=== PATIENT | female | born 1965 | race Two or more races ===

== ENCOUNTER 2025-01-10 09:05 | Outpatient (AMB) | payer MEDICAID, SELFPAY ==
--- NOTE | 2025-01-10 09:27 | ORTHONT_ITS ---
Vital signs 01/10/25 09:30 Height 1.47 m Height Method Stated Weight 91.342 kg Weight Measurement Method Standing Scale BMI 42.3 BP 128/84 Blood Pressure Source Automatic Cuff Blood Pressure Location Left Upper Arm Position Sitting Respiration 18 Pulse 82 Pulse Source Monitor Temp 96.8 F Temp Source Temporal Artery Scan Pulse Oximetry (%) 98 Oxygen Delivery Method Room Air Med/Allergies Allergies & Medications Allergies No Known Allergies Allergy (Verified 01/10/25 09:31) Medication Reconciliation atorvastatin 10 mg tablet 10 mg PO QDAY 09/20/23 [History Confirmed 01/10/25] ergocalciferol (vitamin D2) 1,250 mcg (50,000 unit) capsule 1,250 mcg PO QWEEK 09/20/23 [History Confirmed 01/10/25] ertugliflozin 15 mg tablet (Steglatro) 15 mg PO QDAY 09/20/23 [History Confirmed 01/10/25] levothyroxine 50 mcg capsule 50 mcg PO QDAY 09/20/23 [History Confirmed 01/10/25] lisinopril 10 mg tablet 10 mg PO QDAY 09/20/23 [History Confirmed 01/10/25] meloxicam 7.5 mg tablet 7.5 mg PO BID #45 tabs 09/20/23 [Rx Confirmed 01/10/25] metformin 1,000 mg tablet 1,000 mg PO BID 09/20/23 [History Confirmed 01/10/25] pioglitazone 15 mg tablet 15 mg PO QDAY 09/20/23 [History Confirmed 01/10/25] meloxicam 7.5 mg tablet 7.5 mg PO QDAY #45 tabs 01/10/25 [Rx] Exam Exam Patient is in no acute distress and is cooperative with the examination today. Breathing is nonlabored. In no respiratory distress. Bilateral extremities were evaluated and demonstrates sensation intact to light touch. Palpable pedal pulses are present. No significant edema is present. Bilateral hips were examined. The patient has no pain with log roll of the hips. Internal rotation to 30 degrees and external rotation to 30 degrees is painless. Negative FADIR. Left knee was examined today. The right knee is in reasonable alignment. Range of motion from 0-120 degrees. Knee is stable to varus and valgus as well as AP translation with <5mm. Patient has a negative Mc[place]rays. There is no pain with patellofemoral compression and no crepitus noted. The knee is nontender to palpation. Right knee is tender to palpation medially and laterally. Range of motion is 0 to 110 degrees. Knee feels stable to varus valgus stress as well as AP translation I reviewed an MRI from [facility]. This demonstrates a lateral and medial meniscus tear. It demonstrates degenerative changes xrays demonstrate lateral arthritis of moderate severity on the right and moderate arthritis on the left Assessment and Plan Problem List (1) Pain in right knee: Status: Acute Plan: Patient is a 58-year-old female with degenerative meniscal tears of her right knee as well as right knee osteoarthritis. She has Done well with the last cortisone injections. She would like bilateral knee cortisone injections today and a meloxicam prescription Recommend knee cortisone injections as patient would like to proceed with conservative treatment at this time. The risks and benefits of the procedure were reviewed with the patient and patient gave verbal consent to continue with the procedure. Procedure: performed by Dr. Love Using sterile technique the Bilateral knees were thoroughly prepped with alcohol, and approximately 1 cc of Kenalog 40 mg/mL and 4 cc of 1% lidocaine was injected into each knee without resistance into the medial tibial femoral joint space. The patient tolerated the procedure. (2) Arthritis of knee, right: Status: Acute (3) Arthritis of both knees: Status: Acute Office Procedures GNS Level of Care Nursing/Assessment Patient Status: Established Patient Nursing Assessment/Reassesment: Medication Reconciliation, Update PMH in EMR and Vital Signs Coordination of Care: Complex Care and Chronic Disease 1-5, Education Complex Pt/Fam, Consent,records obtained, informed consent, Results/Orders obtained and Staff clarify orders Special Needs: Language special needs Established Patient Charge Established Patient Point Assignment: 95 Established Patient Point Charge: EP Level 3 (80-115) Surgical Proc/IM SQ injection Major Surgical Procedure: Yes (BILATERAL KNEE INJECTION) Medication Given Medication Given Medication Given: Yes Documented Dose Given: 4 Route: Infiitration Medication Given Medication Given Medication Given: Yes Documented Dose Given: 4 Route: Infiitration Medication Given Medication Given Medication Given: Yes Documented Dose Given: 2 Route: Infiitration Medication Given Medication Given Medication Given: Yes Documented Dose Given: 2 Route: Infiitration Office Meds Xylocaine 10 mg/mL (1 %) injection solution Performing Provider: Parish Love MD Performing Location: [facility] Administered by: Parish Love MD on 01/10/25 09:59 Dose Route Admin Location Dispensed Lot Number Expiration Date [employer] 40 mL Infiltration 40 mL [id number] 04/01/28 20518-169-81 [employer] Xylocaine 10 mg/mL (1 %) injection solution Performing Provider: Parish Love MD Performing Location: [facility] Administered by: Parish Love MD on 01/10/25 09:59 Dose Route Admin Location Dispensed Lot Number Expiration Date ND Legal Writing Professor 40 mL Infiltration 40 mL [id number] 04/01/28 42699-810-34 TYREE [employer] KABI triamcinolone acetonide 40 mg/mL suspension for injection Performing Provider: Parish Love MD Performing Location: [facility] Administered by: Parish Love MD on 01/10/25 09:59 Dose Route Admin Location Dispensed Lot Number Expiration Date [facility] [place] [employer] Professor 80 mg intra-articular 2 mL [id number] 08/01/26 4033-4051-31 [facility]ENTER[employer] triamcinolone acetonide 40 mg/mL suspension for injection Performing Provider: Parish Love MD Performing Location: [facility] Administered by: Parish Love MD on 01/10/25 09:59 Dose Route Admin Location Dispensed Lot Number Expiration Date [facility] [place] [employer] Writing Professor 80 mg intra-articular 2 mL [id number] 03/01/26 TE MD PARENTERAL MA Intake Visit Data Collection New Patient or Established: Established Patient (seen at [facility] within 3 years) Reason for Visit:: BILATERAL KNEE INJECTION Seen by Clinical Staff ONLY (RN/MA): No Academic Services Professional Required: Yes PCP or OBGYN visit in last 3 months: Yes Hx Now: No Do You Feel Safe at Home: Yes Authorities Contacted: N/A Questionairres Past Medical History Past Medical History Have you ever been diagnosed with any of the following: Respiratory Problems Smoking: No Smoking Exposure: No Subjective Visit Visit for: follow up visit, knee (BILATERAL) and injections Immunization / Flu Flu Vaccine in the Last 12 Months: No Flu Vaccine Exclusion Criteria: No Exclusion Criteria History of Present Illness Chief complaint: bilateral knee pain Patient is a pleasant 59-year-old female with bilateral knee pain and bilateral knee arthritis. We have been treating her conservatively. She had over 6 months of relief with the last Knee injections and wants new ones today Pain Pain level (0-10): 2 Pain duration: ON AND OFF Pain location: inside (medial) and anterior Pain quality: dull and aching Pain timing: increases with activity and stairs Ambulatory data Ambulatory device: none Treatments Number of previous injections: 2 Improvement with previous injections: Yes Improvement with PT: No Improvement with NSAIDS: no Review of Systems Review of Systems: All systems negative unless otherwise noted in HPI.
[2025-01-10 09:30] VITALS: BP 128/84; PULSE 82; RESP 18; TEMP 36; O2SAT 98; BMI 42.3
== END 2025-01-10 09:58 | disposition home or self-care (01) ==
LOC: HODSRG 09:05
PROVIDERS: PCP Nurse Practitioner Family; Referring Provider Nurse Practitioner Family; Supervising Provider Orthopaedic Surgery Adult Reconstructive Orthopaedic Surgery; Visit Provider Orthopaedic Surgery Adult Reconstructive Orthopaedic Surgery
DX: M25.562 Pain in left knee (principal); M17.0 Bilateral primary osteoarthritis of knee; S83.241D Other tear of medial meniscus, current injury, right knee, subsequent encounter; X58.XXXD Exposure to other specified factors, subsequent encounter
CPT/HCPCS: 20610; 99213; J3301; J3490; G0463